=== PATIENT | female | born 1930 | race African-American/Black ===

== ENCOUNTER → 2019-01-10 | Outpatient (CLI) | payer OTHER, BC ==
[~2019-01-10] VITALS: Ht 162.6 cm; Wt 55.8 kg
[~2019-01-10] MED LIST: ASPIR 8181 MG PO; ATORVASTATIN CA40 MG PO; IRON325 PO; LOSARTAN-HCTZ1 EAC2 PO; NEURONTIN 300300 M1 PO; PREDNISONE 5 MG5 M1 PO; PROTONIX40 M1 PO; TOPROL XL50 MG PO; XALATAN2.5 ML OPHTHALMIC
[2019-01-10 13:35] LABS: HEMATOCRIT 28.2 % (37.0-47.0); MCH 27.5 pg (26.0-34.0); MCHC 31.8 g/dL (28.0-37.0); MCV 86.5 fL (80.0-100.0); RBC 3.26 mil/uL (4.20-5.00); RDW 13.4 % (10.5-14.5); WBC 11.5 thou/uL (4.0-11.0)
[2019-01-10 13:39] LABS: CREATININE 1.2 mg/dL (0.6-1.0); POTASSIUM 3.6 mmol/L (3.5-5.1)
[2019-01-10 13:47] VITALS: BP 148/60
== END | disposition home or self-care (01) ==
LOC: SPEC 12:29
PROVIDERS: Nuclear Medicine Nuclear Cardiology
DX: I70.211 Atherosclerosis of native arteries of extremities with intermittent claudication, right leg (principal); L81.9 Disorder of pigmentation, unspecified; I70.1 Atherosclerosis of renal artery; I10 Essential (primary) hypertension; M60.9 Myositis, unspecified; K21.9 Gastro-esophageal reflux disease without esophagitis; Z98.890 Other specified postprocedural states; Z79.899 Other long term (current) drug therapy; Z88.8 Allergy status to other drugs, medicaments and biological substances; Z79.82 Long term (current) use of aspirin